=== PATIENT | female | born 1950 | race Caucasian/White ===

== ENCOUNTER → 2023-12-10 15:44 | Outpatient (REF) | payer MEDICARE, OTHER, SELFPAY | LOC: WDC 15:44 | PROVIDERS: ATTENDING PHYSICIAN Internal Medicine Hematology & Oncology; FAMILY PHYSICIAN Internal Medicine | DX: Z12.31 Encounter for screening mammogram for malignant neoplasm of breast (principal) | CPT/HCPCS: 77063; 77067 ==

== ENCOUNTER → 2024-01-06 10:59 | Outpatient (REF) | payer MEDICARE, OTHER, SELFPAY | LOC: WDC 10:59 | PROVIDERS: ATTENDING PHYSICIAN Internal Medicine Hematology & Oncology; FAMILY PHYSICIAN Internal Medicine | DX: R92.2 Inconclusive mammogram (principal); C50.912 Malignant neoplasm of unspecified site of left female breast | CPT/HCPCS: 76641 ==

== ENCOUNTER → 2024-12-10 15:20 | Outpatient (REF) | payer MEDICARE, OTHER, SELFPAY | LOC: WDC 15:20 | PROVIDERS: ATTENDING PHYSICIAN Internal Medicine Hematology & Oncology; FAMILY PHYSICIAN Internal Medicine | DX: Z12.31 Encounter for screening mammogram for malignant neoplasm of breast (principal) | CPT/HCPCS: 77063; 77067 ==

== ENCOUNTER → 2024-12-21 10:02 | Outpatient (REF) | payer MEDICARE, OTHER, SELFPAY | LOC: WDC 10:02 | PROVIDERS: ATTENDING PHYSICIAN Internal Medicine Hematology & Oncology; FAMILY PHYSICIAN Internal Medicine | DX: R92.2 Inconclusive mammogram (principal) | CPT/HCPCS: 76641 ==